=== PATIENT | male | born 1935 | race Caucasian/White ===

== ENCOUNTER 2016-12-03 09:38 | Outpatient (CLI) | payer MEDICARE, OTHER | END 2016-12-03 09:39 | disposition home or self-care (01) | DX: E55.9 Vitamin D deficiency, unspecified (principal); D64.9 Anemia, unspecified ==

== ENCOUNTER 2016-12-04 15:16 | Outpatient (CLI) | payer MEDICARE, OTHER | END 2016-12-04 15:17 | disposition home or self-care (01) | DX: E55.9 Vitamin D deficiency, unspecified (principal); D64.9 Anemia, unspecified ==

== ENCOUNTER 2022-07-16 13:29 | Outpatient (CLI) | payer MEDICARE, OTHER | END 2022-07-16 13:30 | disposition home or self-care (01) | LOC: RT 13:29 | PROVIDERS: ATTEND Family Medicine | DX: I20.9 Angina pectoris, unspecified (principal) | CPT/HCPCS: 93005 ==

== ENCOUNTER 2023-09-17 10:16 | Outpatient (CLI) | payer MEDICARE, OTHER ==
[2023-09-17 14:53] LABS: BASOPHILS % (AUTO) 0.6 %; EOSINOPHILS # (AUTO) 0.1 10^3/uL (0.0-0.7); EOSINOPHILS % (AUTO) 2.1 %; HCT - HEMATOCRIT 47.1 % (42.0-52.0); HGB - HEMOGLOBIN 14.4 g/dL (14.0-18.0); LYMPHOCYTES % (AUTO) 21.4 %; MEAN CORPUSCULAR HGB CONC 30.6 g/dL (32.0-36.0); MEAN CORPUSCULAR VOLUME 91.6 fL (80.0-94.0); MEAN PLATELET VOLUME 10.6 fL (7.4-11.4); MONOCYTES # (AUTO) 0.8 10^3/uL (0.0-1.0); MONOCYTES % (AUTO) 15.8 %; NEUTROPHILS # (AUTO) 2.9 10^3/uL (1.5-6.6); NEUTROPHILS % (AUTO) 59.9 %; PLT - PLATELET COUNT 206 10^3/uL (130-450); RED BLOOD COUNT 5.14 10^6/uL (4.70-6.10); RED CELL DISTRIBUTION WIDTH 13.2 % (12.0-15.0); WHITE BLOOD COUNT 4.8 x10^3/uL (4.8-10.8)
[2023-09-17 15:14] LABS: % IRON SATURATION 24 % (20-50); ALKALINE PHOSPHATASE 83 IU/L (42-121); ALT ALANINE AMINOTRANSFERASE 16 IU/L (10-60); AST ASPARTATE AMINOTRANSFERASE 19 IU/L (10-42); BILIRUBIN,TOTAL 0.6 mg/dL (0.2-1.0); BUN - BLOOD UREA NITROGEN 16 mg/dL (6-20); CALCIUM 10.1 mg/dL (8.5-10.3); CARBON DIOXIDE - CO2 29 mmol/L (21-32); CHLORIDE 104 mmol/L (101-111); CHOL/HDL RATIO 2.8 (<5.0); CHOLESTEROL 176 mg/dL; CREATININE 1.1 mg/dL (0.6-1.3); GFR - MDRD 63 (>89); GLUCOSE 87 mg/dL (74-104); HDL CHOLESTEROL 63 mg/dL; IRON 75 ug/dL (50-212); LDL CHOLESTEROL,CALCULATED 97 mg/dL; LDL/HDL RATIO 1.5 (<3.6); POTASSIUM 4.2 mmol/L (3.5-4.5); SODIUM 139 mmol/L (135-145); TOTAL IRON BINDING CAPACITY 308 ug/dL (250-450); TRANSFERRIN 220 mg/dL (203-362); TRIGLYCERIDES 78 mg/dL (48-352); VLDL CHOLESTEROL 16 mg/dL
[2023-09-17 15:18] LABS: THYROID STIMULATING HORMONE 3.13 uIU/mL (0.34-5.60)
[2023-09-17 15:24] LABS: FERRITIN 165.7 ng/mL (23.9-336.2)
[2023-09-17 20:58] LABS: ESTIMATED AVERAGE GLUCOSE 123 mg/dL (70-100); HEMOGLOBIN A1c% 5.9 % (4.27-6.07)
== END 2023-09-17 10:17 | disposition home or self-care (01) ==
LOC: LAB.S 10:16
PROVIDERS: ATTEND Family Medicine
DX: I10 Essential (primary) hypertension (principal); E78.5 Hyperlipidemia, unspecified; R53.83 Other fatigue; E03.9 Hypothyroidism, unspecified; D64.9 Anemia, unspecified; R73.09 Other abnormal glucose
CPT/HCPCS: 36415; 80053; 80061; 82626; 82728; 83036; 83090; 83540; 83721; 84439; 84443; 84466; 84480; 84481; 84482; 85025; 86141

== ENCOUNTER 2023-11-23 13:22 | Outpatient (CLI) | payer MEDICARE, OTHER ==
[2023-11-23 19:56] LABS: BASOPHILS % (AUTO) 0.6 %; EOSINOPHILS # (AUTO) 0.1 10^3/uL (0.0-0.7); EOSINOPHILS % (AUTO) 1.4 %; HGB - HEMOGLOBIN 14.4 g/dL (14.0-18.0); LYMPHOCYTES # (AUTO) 1.5 10^3/uL (1.5-3.5); MEAN CORPUSCULAR HEMOGLOBIN 28.1 pg (27.0-31.0); MEAN CORPUSCULAR HGB CONC 31.3 g/dL (32.0-36.0); MEAN CORPUSCULAR VOLUME 89.8 fL (80.0-94.0); MEAN PLATELET VOLUME 11.2 fL (7.4-11.4); MONOCYTES # (AUTO) 0.6 10^3/uL (0.0-1.0); MONOCYTES % (AUTO) 9.6 %; NEUTROPHILS # (AUTO) 4.3 10^3/uL (1.5-6.6); NEUTROPHILS % (AUTO) 65.1 %; PLT - PLATELET COUNT 193 10^3/uL (130-450); RED BLOOD COUNT 5.12 10^6/uL (4.70-6.10); RED CELL DISTRIBUTION WIDTH 13.9 % (12.0-15.0); WHITE BLOOD COUNT 6.6 x10^3/uL (4.8-10.8)
[2023-11-23 20:09] LABS: ALBUMIN 4.2 g/dL (3.2-5.5); BILIRUBIN,TOTAL 0.6 mg/dL (0.2-1.0); CALCIUM 10.5 mg/dL (8.5-10.3); CREATININE 1.1 mg/dL (0.6-1.3); CRP HIGH SENSITIVITY 0.3 mg/L; POTASSIUM 4.5 mmol/L (3.5-4.5); TOTAL PROTEIN 6.3 g/dL (6.4-8.9)
[2023-11-23 20:25] LABS: THYROID STIMULATING HORMONE 2.55 uIU/mL (0.34-5.60)
[2023-11-23 20:55] LABS: ESTIMATED AVERAGE GLUCOSE 114 mg/dL (70-100); HEMOGLOBIN A1c% 5.6 % (4.27-6.07)
== END 2023-11-23 13:23 | disposition home or self-care (01) ==
LOC: LAB.S 13:22
PROVIDERS: ATTEND Family Medicine
DX: E03.9 Hypothyroidism, unspecified (principal); R53.83 Other fatigue; R73.09 Other abnormal glucose
CPT/HCPCS: 36415; 80053; 83036; 83090; 84439; 84443; 84480; 84481; 84482; 85025; 86141

== ENCOUNTER 2024-06-03 13:19 | Outpatient (CLI) | payer MEDICARE ==
[2024-06-03 19:55] LABS: BASOPHILS % (AUTO) 0.5 %; EOSINOPHILS # (AUTO) 0.1 10^3/uL (0.0-0.7); EOSINOPHILS % (AUTO) 1.6 %; HCT - HEMATOCRIT 44.5 % (42.0-52.0); HGB - HEMOGLOBIN 14.1 g/dL (14.0-18.0); LYMPHOCYTES # (AUTO) 1.6 10^3/uL (1.5-3.5); LYMPHOCYTES % (AUTO) 20.5 %; MEAN CORPUSCULAR HEMOGLOBIN 28.3 pg (27.0-31.0); MEAN CORPUSCULAR HGB CONC 31.7 g/dL (32.0-36.0); MEAN CORPUSCULAR VOLUME 89.2 fL (80.0-94.0); MEAN PLATELET VOLUME 11.5 fL (7.4-11.4); MONOCYTES # (AUTO) 0.8 10^3/uL (0.0-1.0); MONOCYTES % (AUTO) 9.8 %; NEUTROPHILS # (AUTO) 5.2 10^3/uL (1.5-6.6); NEUTROPHILS % (AUTO) 67.5 %; PLT - PLATELET COUNT 183 10^3/uL (130-450); RED BLOOD COUNT 4.99 10^6/uL (4.70-6.10); RED CELL DISTRIBUTION WIDTH 13.2 % (12.0-15.0); WHITE BLOOD COUNT 7.7 x10^3/uL (4.8-10.8)
[2024-06-03 20:07] LABS: ALBUMIN 4.1 g/dL (3.2-5.5); ALBUMIN/GLOBULIN RATIO 2.4 (1.0-2.2); BILIRUBIN,TOTAL 0.5 mg/dL (0.2-1.0); CALCIUM 10.1 mg/dL (8.5-10.3); CREATININE 1.1 mg/dL (0.6-1.3); CRP HIGH SENSITIVITY 0.53 mg/L; POTASSIUM 4.2 mmol/L (3.5-4.5); TOTAL PROTEIN 5.8 g/dL (6.4-8.9)
[2024-06-03 20:27] LABS: THYROID STIMULATING HORMONE 3.16 uIU/mL (0.34-5.60)
[2024-06-03 20:29] LABS: PSA TOTAL 1.654 ng/mL (0.000-2.000)
[2024-06-03 20:32] LABS: ESTIMATED AVERAGE GLUCOSE 117 mg/dL (70-100); HEMOGLOBIN A1c% 5.7 % (4.27-6.07)
[2024-06-03 20:34] LABS: FERRITIN 82.1 ng/mL (23.9-336.2)
[2024-06-05 09:07] LABS: VITAMIN D 25-HYDROXY 80.7 ng/mL (30.0-100.0)
== END 2024-06-03 13:20 | disposition home or self-care (01) ==
LOC: LAB.S 13:19
PROVIDERS: ATTEND Family Medicine
DX: R53.83 Other fatigue (principal); E03.9 Hypothyroidism, unspecified; E55.9 Vitamin D deficiency, unspecified; R73.09 Other abnormal glucose; E78.5 Hyperlipidemia, unspecified; E72.11 Homocystinuria; N52.9 Male erectile dysfunction, unspecified
CPT/HCPCS: 36415; 80053; 82306; 82626; 82728; 83036; 83090; 84153; 84439; 84443; 84480; 84481; 84482; 85025; 86141